=== PATIENT | male | born 1960 | race Caucasian/White ===

== ENCOUNTER 2022-05-06 02:28 | Inpatient (IN) ==
[2022-05-06] MEDS ORDERED: IOPAMIDOL 100 ML BOTTLE IV ONE (02:29)
--- NOTE | 2022-05-06 02:32 | Emergency Department Note ---
HPI General Chief complaint: Abdominal Pain Stated complaint: GI bleed. Black tarry stools, Nausea Time Seen by Provider: 05/06/22 02:32 Mode of arrival: ambulatory History of Present Illness HPI Narrative: Narrative: Patient is a 61-year-old male with a history of Susan fundoplication who presents to the emergency department due to abdominal pain and worsening of dark-colored stool. 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 He states that tonight he began to have lightheadedness, worsened abdominal pain, nausea, and his stool became dark and tarry. He states that the abdominal pain is in the upper part of his belly, sharp, and radiates to his back. He denies any other symptoms at this time. He has not taken any other medication. Related Data Previous Rx's Medication Instructions Recorded omeprazole 20 mg capsule,delayed 20 mg PO QDAY #30 caps 05/04/22 release Allergies Allergy/AdvReac Type Severity Reaction Status Date / Time No Known Drug Allergies Allergy Unverified 05/04/22 20:41 Review of Systems ROS ROS Narrative: Narrative: Constitutional: Reports weakness (Generalized); Denies fever Eyes: Denies eye pain or vision change ENT ED: Denies throat pain, hearing loss or rhinorrhea Cardiovascular: Reports other (Lightheadedness); Denies chest pain, dyspnea on exertion, orthopnea or edema Respiratory: Denies shortness of breath or cough Gastrointestinal: Reports abdominal pain, nausea and melena; Denies vomiting, diarrhea, constipation or hematochezia Genitourinary: Denies dysuria, frequency or hematuria Musculoskeletal: Denies back pain or myalgia Integumentary: Denies rash or lesions Neurological: Reports weakness (Generalized); Denies headache, numbness, confusion, abnormal gait or dizziness Endocrine: Denies fatigue or polyuria Hematological/Lymphatic: Denies easy bleeding or easy bruising [facility] Narrative Patient History Narrative: Narrative: Medical/Surgical/Family History All Active Problems (Updated 05/06/22 @ 07:06 by Marvin Aguiar MD) Abdominal pain (Acute) Diverticulosis (Acute) Heme positive stool (Acute) Acute upper GI bleed (Acute) Social History Smoking Status: Former smoker Exam Narrative Narrative: Narrative: General General appearance: Present alert and in no apparent distress; Absent anxious, appears intoxicated or sleepy Head Head: Present atraumatic and normocephalic Eye Eye: Present PERRL and EOMI; Absent scleral icterus or nystagmus ENT ENT: Present mucous membranes moist; Absent nasal congestion Neck Neck: Present full ROM; Absent tenderness Chest Chest: Present normal inspection and symmetric chest wall rise Respiratory Respiratory: Present normal lung sounds bilaterally; Absent respiratory distress or accessory muscle use Cardiovascular Cardiovascular: Present regular rate, normal rhythm and normal heart sounds Adbominal Abdominal: Present soft and normal bowel sounds; Absent distention or tenderness Extremities Extremities: Present normal inspection and full ROM; Absent tenderness, pedal edema or pretibial edema Back Back: Present normal inspection and full ROM Neurological Neurological: Present alert and oriented X3 Psychiatric Psychiatric: Present normal affect and normal mood Skin Skin: Present warm (WNL), dry and normal color Course Vital Signs Vital signs: Vital Signs Temperature 97.2 F 05/06/22 02:30 Pulse Rate 78 05/06/22 02:30 Respiratory Rate 20 05/06/22 02:30 Blood Pressure 107/79 05/06/22 02:30 Pulse Oximetry (%) 98 05/06/22 02:30 Oxygen Delivery Method 05/06/22 02:30 Temperature 97.2 F 05/06/22 02:30 Pulse Rate 76 05/06/22 07:04 Respiratory Rate 14 05/06/22 07:04 Blood Pressure 96/78 05/06/22 07:01 Pulse Oximetry (%) 98 05/06/22 07:04 Oxygen Delivery Method 05/06/22 02:30 [facility] MDM Narrative Medical decision making narrative: Narrative: Patient is a 61-year-old male who presents to the emergency department due to concern for GI bleed. Patient was seen on Thursday, but symptoms have worsened since then. Patient now has concern for a more brisk upper GI bleed. Given patient's symptoms I am concerned that he will need to be admitted. Patient's labs are reassuring overall, but he does have more elevated BUN than he did on Thursday. A Protonix bolus and drip have been ordered. I have spoken to Dr. Salinas who has agreed to see the patient, but as I was speaking to him there was concern for hypotension, so I reevaluated patient. After reevaluation patient had continued hypotension. I spoke with Dr. Salinas again, and he requested CT angiogram of abdomen and pelvis prior to admission. This has been ordered and performed and read is pending. Patient has been signed out to Dr. Rico. Lab Data Result diagrams: 05/06/22 02:52 Labs: Lab Results 05/06/22 05/06/22 05/06/22 Range/Units 02:50 02:51 02:51 WBC (4.5-11.0) K/mcL RBC (4.63-6.08) M/mcL Hgb (13.7-17.5) g/dL Hct (40.1-51.0) % POC Hct 40.0 L (41-55) MCV (80.0-100.0) fL MCH (26.0-34.0) pg MCHC (31.0-36.0) g/dL RDW (11.5-14.5) % Plt Count (140-440) K/mcL MPV (8.8-12.5) fL Immature Gran % (Auto) (0.0-0.5) % Neut % (Auto) (38.0-78.0) % Lymph % (Auto) (15.5-49.0) % [place] % (Auto) (1.0-12.0) % Eos % (Auto) (0.0-7.0) % Baso % (Auto) (0.0-2.0) % Lymph # (Auto) (1.50-4.80) K/mcL [place] # (Auto) (0.10-0.90) K/mcL Eos # (Auto) (0.00-0.70) K/mcL Baso # (Auto) (0.00-0.30) K/mcL Immature Gran # (0.00-0.05) K/mcl Absolute Neutrophils (1.80-8.00) K/mcL PT 12.6 (11.9-14.5) sec INR 0.9 (0.9-1.1) APTT (20.0-37.0) sec POC VBG pH (7.32-7.42) POC VBG pCO2 at Temp (41-51) POC VBG pO2 (25-40) POC VBG HCO3 (24-28) POC VBG Total CO2 (25-29) POC Venous O2 Sat (40-70) POC VBG Base Excess (-2-2) VBG Lactic Acid (0.5-2) POC Sodium 138 (133-145) POC Potassium 5.3 H (3.3-5.1) POC Chloride 107 (96-108) POC Total CO2 24.0 (22-30) POC BUN 59 H (6-20) POC Creatinine 1.3 H (0.6-1.2) POC Glucose 127 H (70-105) POC WB Ioniz Calcium 1.18 (1.16-1.32) Total Bilirubin (0.1-1.0) mg/dL Direct Bilirubin (0-0.3) mg/dL AST (<40) U/L ALT (<40) U/L Alkaline Phosphatase (39-117) U/L Total Protein (5.9-8.4) gm/dL Albumin (3.2-5.2) gm/dL Globulin (2.2-3.7) gm/dL Lipase (7-60) U/L POC Troponin I < 0.02 (0.00-0.08) 05/06/22 05/06/22 05/06/22 Range/Units 02:52 02:52 02:52 WBC 12.9 H (4.5-11.0) K/mcL RBC 4.47 L (4.63-6.08) M/mcL Hgb 14.2 (13.7-17.5) g/dL Hct 39.6 L (40.1-51.0) % POC Hct (41-55) MCV 88.6 (80.0-100.0) fL MCH 31.8 (26.0-34.0) pg MCHC 35.9 (31.0-36.0) g/dL RDW 12.9 (11.5-14.5) % Plt Count 326 (140-440) K/mcL MPV 9.8 (8.8-12.5) fL Immature Gran % (Auto) 0.6 H (0.0-0.5) % Neut % (Auto) 71.8 (38.0-78.0) % Lymph % (Auto) 18.1 (15.5-49.0) % [place] % (Auto) 5.4 (1.0-12.0) % Eos % (Auto) 3.6 (0.0-7.0) % Baso % (Auto) 0.5 (0.0-2.0) % Lymph # (Auto) 2.33 (1.50-4.80) K/mcL [place] # (Auto) 0.70 (0.10-0.90) K/mcL Eos # (Auto) 0.46 (0.00-0.70) K/mcL Baso # (Auto) 0.07 (0.00-0.30) K/mcL Immature Gran # 0.08 H (0.00-0.05) K/mcl Absolute Neutrophils 9.21 H (1.80-8.00) K/mcL PT (11.9-14.5) sec INR (0.9-1.1) APTT 23.6 (20.0-37.0) sec POC VBG pH (7.32-7.42) POC VBG pCO2 at Temp (41-51) POC VBG pO2 (25-40) POC VBG HCO3 (24-28) POC VBG Total CO2 (25-29) POC Venous O2 Sat (40-70) POC VBG Base Excess (-2-2) VBG Lactic Acid (0.5-2) POC Sodium (133-145) POC Potassium (3.3-5.1) POC Chloride (96-108) POC Total CO2 (22-30) POC BUN (6-20) POC Creatinine (0.6-1.2) POC Glucose (70-105) POC WB Ioniz Calcium (1.16-1.32) Total Bilirubin 0.8 (0.1-1.0) mg/dL Direct Bilirubin < 0.2 (0-0.3) mg/dL AST 24 (<40) U/L ALT 14 (<40) U/L Alkaline Phosphatase 41 (39-117) U/L Total Protein 7.1 (5.9-8.4) gm/dL Albumin 3.9 (3.2-5.2) gm/dL Globulin 3.2 (2.2-3.7) gm/dL Lipase 31 (7-60) U/L POC Troponin I (0.00-0.08) 11/08/22 Range/Units 05:06 WBC (4.5-11.0) K/mcL RBC (4.63-6.08) M/mcL Hgb (13.7-17.5) g/dL Hct (40.1-51.0) % POC Hct (41-55) MCV (80.0-100.0) fL MCH (26.0-34.0) pg MCHC (31.0-36.0) g/dL RDW (11.5-14.5) % Plt Count (140-440) K/mcL MPV (8.8-12.5) fL Immature Gran % (Auto) (0.0-0.5) % Neut % (Auto) (38.0-78.0) % Lymph % (Auto) (15.5-49.0) % [place] % (Auto) (1.0-12.0) % Eos % (Auto) (0.0-7.0) % Baso % (Auto) (0.0-2.0) % Lymph # (Auto) (1.50-4.80) K/mcL [place] # (Auto) (0.10-0.90) K/mcL Eos # (Auto) (0.00-0.70) K/mcL Baso # (Auto) (0.00-0.30) K/mcL Immature Gran # (0.00-0.05) K/mcl Absolute Neutrophils (1.80-8.00) K/mcL PT (11.9-14.5) sec INR (0.9-1.1) APTT (20.0-37.0) sec POC VBG pH 7.29 L (7.32-7.42) POC VBG pCO2 at Temp 49.3 (41-51) POC VBG pO2 35 (25-40) POC VBG HCO3 23.5 L (24-28) POC VBG Total CO2 25.0 (25-29) POC Venous O2 Sat 59.0 (40-70) POC VBG Base Excess -3.0 L (-2-2) VBG Lactic Acid 0.9 (0.5-2) POC Sodium (133-145) POC Potassium (3.3-5.1) POC Chloride (96-108) POC Total CO2 (22-30) POC BUN (6-20) POC Creatinine (0.6-1.2) POC Glucose (70-105) POC WB Ioniz Calcium (1.16-1.32) Total Bilirubin (0.1-1.0) mg/dL Direct Bilirubin (0-0.3) mg/dL AST (<40) U/L ALT (<40) U/L Alkaline Phosphatase (39-117) U/L Total Protein (5.9-8.4) gm/dL Albumin (3.2-5.2) gm/dL Globulin (2.2-3.7) gm/dL Lipase (7-60) U/L POC Troponin I (0.00-0.08) EKG Data EKG #1: EKG attestation: Yes I reviewed and interpreted this EKG. EKG results narrative: Normal sinus rhythm with rate of 79, equivocal axis, MS 176, QRS 96, QTc 452, T wave flattening lead III, and absence of ST elevation or depression. Discharge Plan Patient/Caregiver Discharge Instructions Pt seen by AUT[employer] COUNTER ASSOCIATE/PA only: No Clinical Impression: Acute upper GI bleed Patient Disposition: Still a Patient Condition: Fair Follow up with: No,PCP [Primary Care Provider] - Prescriptions: No Action omeprazole 20 mg capsule,delayed release(DR/EC) 20 mg PO QDAY Qty: 30 0RF
[2022-05-06] MEDS ORDERED: PANTOPRAZOLE 40 MG VIAL IV ONE (02:46)
[2022-05-06] MEDS ORDERED: ONDANSETRON 4 MG/2 ML VIAL IV ONE (02:46)
[2022-05-06] MEDS ORDERED: morphine 4 MG/ML VIAL IV ONE (02:46)
[2022-05-06 02:54] LABS: POC Calcium, Ionized 1.18 (1.16-1.32); POC Creatinine 1.3 (0.6-1.2); POC Potassium 5.3 (3.3-5.1)
[2022-05-06] MEDS ORDERED: PROMETHAZINE 25 MG/ML VIAL IV ONE (03:16)
[2022-05-06 03:19] LABS: Basophils # (Auto) 0.07 K/mcL (0.00-0.30); Basophils % (Auto) 0.5 % (0.0-2.0); Eosinophils # (Auto) 0.46 K/mcL (0.00-0.70); Eosinophils % (Auto) 3.6 % (0.0-7.0); Hematocrit 39.6 % (40.1-51.0); Hemoglobin 14.2 g/dL (13.7-17.5); Lymphocytes # (Auto) 2.33 K/mcL (1.50-4.80); Lymphocytes % (Auto) 18.1 % (15.5-49.0); Mean Cell Volume 88.6 fL (80.0-100.0); Mean Corpuscular HGB Conc 35.9 g/dL (31.0-36.0); Mean Platelet Volume 9.8 fL (8.8-12.5); Monocytes % (Auto) 5.4 % (1.0-12.0); Neutrophils % (Auto) 71.8 % (38.0-78.0); Platelet Count 326 K/mcL (140-440); RBC 4.47 M/mcL (4.63-6.08); Red Cell Distribution Width 12.9 % (11.5-14.5); WBC 12.9 K/mcL (4.5-11.0)
[2022-05-06 03:26] LABS: INR 0.9 (0.9-1.1); Prothrombin Time 12.6 sec (11.9-14.5)
[2022-05-06 03:32] LABS: ALT/SGPT 14 U/L (<40); AST/SGOT 24 U/L (<40); Albumin 3.9 gm/dL (3.2-5.2); Alkaline Phosphatase 41 U/L (39-117); Bilirubin,Direct < 0.2 mg/dL (0-0.3); Bilirubin,Total 0.8 mg/dL (0.1-1.0); Globulin 3.2 gm/dL (2.2-3.7)
[2022-05-06] MEDS: PANTOPRAZOLE 80 MG in 0.9 % SODIUM CHLORIDE 100 ML IV SCH ×2 (03:33→14:26)
[2022-05-06] MEDS ORDERED: 0.9 % SODIUM CHLORIDE 1,000 ML IV ONE (04:27)
[2022-05-06] MEDS ORDERED: 0.9 % SODIUM CHLORIDE 250 ML IV SCH (04:45)
--- NOTE | 2022-05-06 07:09 | EKG ---
[facility] Test Date: 2022-05-06 Pat Name: Ted Monzon Department: ED Room: Gender: Male [employer] Technician: : 1960 Requested By: Marvin Aguiar Order Number: [id number] Reading MD: Gerber Chapa M.D. Measurements Intervals [place] Rate: 79 P: -19 W[place]: 176 QRS: -9 QRSD: 96 T: 35 QT: 394 QTc: 452 Interpretive Statements Sinus rhythm Electronically Signed On 05-06-2022 7:09:22 PST by Gerber Chapa M.D. /store/[email or web address]/[id number]
--- NOTE | 2022-05-06 08:41 | Cat Scan Report ---
History: Gastrointestinal bleeding with black tarry stools, nausea TECHNIQUE: Abdomen was first imaged without contrast scanning from above the diaphragm through the symphysis pubis. Intravenous nonionic contrast was injected and the patient was reimaged during the nephrogram phase scanning from above the diaphragm to the symphysis pubis. Sagittal and coronal reformats were created. The radiation exposure was limited using dose reduction technology. FINDINGS: Mild dependent atelectasis is present in the posterior basal segments of both lower lobes. Small hiatus hernia is present. The liver and spleen are normal in size and homogeneous. The gallbladder and bile ducts are normal. There is no mass or inflammation in the pancreas. The adrenals are normal. There is a nonobstructing 1 mm stone in the lower pole calyx of the left kidney. The kidneys are otherwise normal. The aorta and inferior vena cava are normal. There is minor atherosclerosis. The stomach is largely decompressed. The small intestine is normal. The appendix has been removed. There are multiple diverticula in the descending and sigmoid colon. The wall of the mid sigmoid colon is circumferentially thickened due to chronic diverticulosis. There is no evidence of acute diverticulitis. The ascending and transverse colon are decompressed. The daly do not appear to be inflamed. The source of the intestinal bleeding is not identified on this study. The nephrogram phase images show no extravasation of contrast into the bowel. The prostate, seminal vesicles and bladder are normal. There is severe disc space narrowing at L5-S1. There has been prior fusion at that level. IMPRESSION: Diverticulosis without evidence of diverticulitis. Source of intestinal bleeding is not identified.. Interpreted and Authenticated by: Miguel Ángel Chapa 05/06/22
[2022-05-06 08:56] LABS: Hematocrit 40.2 % (40.1-51.0)
--- NOTE | 2022-05-06 09:26 | Internal Med History&Physical ---
HPI History of Present Illness Patient information: Note initiated : 05/06/22 at 9:09 am Service Date, if different from initiated Date: [] Patient: Ted Monzon 61 y/o M admitted on for GI bleed. Black tarry stools, Nausea. Chief Complaint: [] History of present illness: Mr. 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 The patient was seen in the ED for the same symptoms on 05/04/2022. Hemoglobin at that time was 15.1. The patient had a CT abdomen pelvis with contrast which showed segments of asymmetric thickening of the sigmoid colon. On presentation to the ED on 05/06/2022, the patient's hemoglobin was 14.2. The patient was hypotensive in the emergency department, lactic acid was normal. He received 2 units of red blood cells with modest improvement in blood pressure. A CTA abdomen pelvis not show any evidence of intestinal bleeding. The patient continued to feel lightheaded when upright in the emergency department. Hospital medicine was consulted for admission. Upon further evaluation, the patient says that he has been taking NSAIDs for quite a while. Patient denies taking a proton pump inhibitor with the NSAIDs. The patient says he developed melanotic stools and abdominal pain for the first time on 05/04/2022. Review of systems Constitutional: no fever, fatigue, or weight loss Eyes: Left sided blindness Cardiovascular: no chest pain, no palpitations, positive for lightheadedness when standing Respiratory: no cough or dyspnea Gastrointestinal: Positive for epigastric abdominal pain exacerbated by food intake, positive for nausea, positive for melanotic stools. Genitourinary: no dysuria or difficulty voiding Musculoskeletal: no arthralgia or myalgia Integumentary: no skin lesion or wound Neurological: no focal weakness or numbness Psychiatric: no anxiety or depression Physical exam Head: Atraumatic, normal inspection. Eyes: normal appearance, no scleral icterus. Neck: full ROM Respiratory: no respiratory distress. Cardiovascular: normal rate and rhythm, S1, S2. GI/Abdominal: soft, nontender, no guarding. Extremities: full range of motion, nontender. Neurological: CN II-XII intact, intact motor, intact sensation. Psychiatric: normal mood. Skin: warm, normal color PFSH PFSH All Active Problems (Updated 05/06/22 @ 07:06 by Marvin Aguiar MD) Abdominal pain (Acute) Diverticulosis (Acute) Heme positive stool (Acute) Acute upper GI bleed (Acute) Social History smoking status: Former smoker MEDS/ALLERGIES Home Medications and Allergies Home Medications Medication Instructions Recorded Confirmed Type omeprazole 20 mg capsule,delayed 20 mg PO QDAY #30 caps 05/04/22 05/06/22 Rx release citalopram 10 mg tablet 20 mg PO QDAY 05/06/22 05/06/22 History lisinopril 40 mg tablet 1 tab PO QDAY 05/06/22 05/06/22 History naproxen 500 mg tablet 1 tab PO BIDP PRN Pain 05/06/22 05/06/22 History propranolol 40 mg tablet 40 mg PO BID 05/06/22 05/06/22 History Allergies Allergy/AdvReac Type Severity Reaction Status Date / Time No Known Drug Allergies Allergy Unverified 05/04/22 20:41 EXAM Constitutional Vitals: Temp Pulse Resp BP Pulse Ox O2 Del Method 97.2 F 76 14 96/78 98 05/06/22 02:30 05/06/22 07:04 05/06/22 07:04 05/06/22 07:01 05/06/22 07:04 05/06/22 02:30 DATA Data Completed and Pending Labs: Labs from last 24 hours 05/06/22 05/06/22 05/06/22 07:57 05:06 02:52 WBC RBC Hgb 14.0 Hct 40.2 POC Hct MCV MCH MCHC RDW Plt Count MPV Immature Gran % (Auto) Neut % (Auto) Lymph % (Auto) [place] % (Auto) Eos % (Auto) Baso % (Auto) Lymph # (Auto) [place] # (Auto) Eos # (Auto) Baso # (Auto) Immature Gran # Absolute Neutrophils PT INR APTT 23.6 POC VBG pH 7.29 L POC VBG pCO2 at Temp 49.3 POC VBG pO2 35 POC VBG HCO3 23.5 L POC VBG Total CO2 25.0 POC Venous O2 Sat 59.0 POC VBG Base Excess -3.0 L VBG Lactic Acid 0.9 POC Sodium POC Potassium POC Chloride POC Total CO2 POC BUN POC Creatinine POC Glucose POC WB Ioniz Calcium Total Bilirubin Direct Bilirubin AST ALT Alkaline Phosphatase Total Protein Albumin Globulin Lipase POC Troponin I 05/06/22 05/06/22 05/06/22 02:52 02:52 02:51 WBC 12.9 H RBC 4.47 L Hgb 14.2 Hct 39.6 L POC Hct MCV 88.6 MCH 31.8 MCHC 35.9 RDW 12.9 Plt Count 326 MPV 9.8 Immature Gran % (Auto) 0.6 H Neut % (Auto) 71.8 Lymph % (Auto) 18.1 [place] % (Auto) 5.4 Eos % (Auto) 3.6 Baso % (Auto) 0.5 Lymph # (Auto) 2.33 [place] # (Auto) 0.70 Eos # (Auto) 0.46 Baso # (Auto) 0.07 Immature Gran # 0.08 H Absolute Neutrophils 9.21 H PT INR APTT POC VBG pH POC VBG pCO2 at Temp POC VBG pO2 POC VBG HCO3 POC VBG Total CO2 POC Venous O2 Sat POC VBG Base Excess VBG Lactic Acid POC Sodium POC Potassium POC Chloride POC Total CO2 POC BUN POC Creatinine POC Glucose POC WB Ioniz Calcium Total Bilirubin 0.8 Direct Bilirubin < 0.2 AST 24 ALT 14 Alkaline Phosphatase 41 Total Protein 7.1 Albumin 3.9 Globulin 3.2 Lipase 31 POC Troponin I < 0.02 05/06/22 05/06/22 02:51 02:50 WBC RBC Hgb Hct POC Hct 40.0 L MCV MCH MCHC RDW Plt Count MPV Immature Gran % (Auto) Neut % (Auto) Lymph % (Auto) [place] % (Auto) Eos % (Auto) Baso % (Auto) Lymph # (Auto) [place] # (Auto) Eos # (Auto) Baso # (Auto) Immature Gran # Absolute Neutrophils PT 12.6 INR 0.9 APTT POC VBG pH POC VBG pCO2 at Temp POC VBG pO2 POC VBG HCO3 POC VBG Total CO2 POC Venous O2 Sat POC VBG Base Excess VBG Lactic Acid POC Sodium 138 POC Potassium 5.3 H POC Chloride 107 POC Total CO2 24.0 POC BUN 59 H POC Creatinine 1.3 H POC Glucose 127 H POC WB Ioniz Calcium 1.18 Total Bilirubin Direct Bilirubin AST ALT Alkaline Phosphatase Total Protein Albumin Globulin Lipase POC Troponin I A/P Narrative A/P Narrative: Assessment: 61 year old male with a history of hypertension, degenerative disc disease status post prior lumbar spine surgeries, chronic back pain on NSAIDs, multiple sclerosis in remission, chronic headaches, left eye blindness from prior traumatic eye injury admitted for a probable upper GI bleed. CTA abdomen pelvis did not reveal a source of intra-abdominal bleeding. Patient's main risk factor for upper GI bleeding is long-term NSAID use. #Concern for upper GI bleed #Epigastric abdominal discomfort #Melena and hypotension #Chronic back pain on NSAIDs #Leukocytosis likely stress-induced #Mild elevation in creatinine #Mildly elevated potassium #Essential hypertension #Degenerative disc disease that is post lumbar fusion surgery #Multiple sclerosis in remission #Left eye blindness due to prior eye trauma #Chronic headaches Plan -Received 2 units RBC in the ED for hypotension in the setting of GI bleed. -Follow hemoglobin closely, transfuse RBC for hemoglobin less than 7 or symptomatic anemia. -Typed and screened for 4 units RBC. -Protonix infusion. -IV fluid, monitor urine output. -Follow potassium and renal function. -H. pylori stool antigen. -Endoscopic work-up with general surgery. -Hold lisinopril, propranolol for now. -Avoid NSAIDs. -N.p.o. -CODE STATUS: Full -Disposition: Home when stable, recommend screening colonoscopy if not recently performed. Time Spent With Patient Time: Total time spent is greater than 50% in coordination of care (as documented) at patient's floor/unit and/or counseling patient:
[2022-05-06] MEDS ORDERED: 0.9 % SODIUM CHLORIDE 1,000 ML IV SCH (10:42)
[2022-05-06] MEDS ORDERED: ONDANSETRON 4 MG/2 ML VIAL IV PRN (10:42)
[2022-05-06] MEDS ORDERED: SENNOSIDES 1 TABLET PO PRN (10:42)
[2022-05-06] MEDS ORDERED: ACETAMINOPHEN 325 MG TABLET PO PRN (10:42)
[2022-05-06] MEDS ORDERED: LACTULOSE 20 GM/30 ML ORAL.SOL PO PRN (10:42)
[2022-05-06] MEDS ORDERED: ACETAMINOPHEN 650 MG/65 ML BAG IV PRN (10:59)
[2022-05-06] MEDS: HYDROmorphone 0.5 MG/0.5 ML SYRINGE IV PRN ×3 (11:08→23:40)
--- NOTE | 2022-05-06 11:28 | General Surgery Consult Note ---
HPI Date of Consult Consult Date: 05/06/22 Primary Care Provider: PCP No Consult Narrative Patient Information: Note initiated : 05/06/22 at 11:26 am Service Date, if different from initiated Date: [] Patient: Ted Monzon 61 y/o M admitted on 05/06/22 for GI bleed. Black tarry stools, Nausea. This is a pleasant 61-year-old gentleman who has had a EGD in the past and had a Susan fundoplication in the past who presents with several week history of dark melanotic stools, the stools were guaiac +2 days ago in the emergency room however his H&H was stable therefore he was sent out with a GI consult. Patient reports starting to feel lightheaded presented to the emergency room and is being admitted for possible upper GI bleed work-up. I was asked to see the patient for an EGD. Chief Complaint: [] Chief complaint: Dark tarry stools, lightheadedness Reason for consult: Possible upper GI bleed cc:: CC: Yury Salinas MD Review of Systems Review of systems: All systems reviewed, negative other than above PFSH PFSH All Active Problems (Updated 05/06/22 @ 07:06 by Marvin Aguiar MD) Abdominal pain (Acute) Diverticulosis (Acute) Heme positive stool (Acute) Acute upper GI bleed (Acute) Social History smoking status: Former smoker MEDS/ALLERGIES Home Medications and Allergies Home Medications Medication Instructions Recorded Confirmed Type omeprazole 20 mg capsule,delayed 20 mg PO QDAY #30 caps 05/04/22 05/06/22 Rx release citalopram 10 mg tablet 10 mg PO QDAY 05/06/22 05/06/22 History lisinopril 40 mg tablet 1 tab PO QDAY 05/06/22 05/06/22 History naproxen 500 mg tablet 1 tab PO BIDP PRN Pain 05/06/22 05/06/22 History propranolol 40 mg tablet 40 mg PO BID 05/06/22 05/06/22 History sildenafil (pulm.hypertension) 20 1 - 2 tab PO PRN PRN Erectile 05/06/22 05/06/22 History mg tablet Dysfunction Allergies Allergy/AdvReac Type Severity Reaction Status Date / Time No Known Drug Allergies Allergy Unverified 05/04/22 20:41 Physical Examination Vital Signs Vital signs: Temp Pulse Resp BP Pulse Ox O2 Del Method O2 Flow Rate 98.0 F 80 16 91/73 99 0 05/06/22 10:44 05/06/22 10:44 05/06/22 10:44 05/06/22 10:44 05/06/22 10:44 05/06/22 10:44 05/06/22 10:44 General physical appearance General physical exam: well developed, well nourished and no distress Eyes Eye exam: PERRL and normal ocular movement ENT ENT exam: normal pinna, normal nares, normal mucosa, no hearing loss and no congestion Head Head exam IM: Present atraumatic and normocephalic Neck Neck exam: no masses, no bruits, trachea midline, no lymphadenopathy and no venous distension Cardiovascular Cardiovascular exam IM: Present normal rate and rhythm Respiratory Respiratory exam: normal expansion, normal respiratory effort, clear to percussion and clear to auscultation Abdomen Abdomen: Present soft, non tender and bowel sounds Hernia: Present none Genitourinary Genitourinary (Male): Present normal penis with no external lesions Rectum Rectum: Present normal sphincter tone, no hemorrhoids, no tenderness, no masses and no bleeding Integumentary Integumentary: Present no rash, no growths and no abnormal pigmentation Neurologic Neurologic: Present normal coordination and normal sensation Musculoskeletal Musculoskeletal: Present normal gait and normal posture Psychiatric Psychiatric: Present oriented to time, oriented to person, oriented to place, speech is normal and memory intact Results Labs Result diagrams: 05/06/22 07:57 Labs: Abnormal lab results 05/06/22 05/06/22 05/06/22 Range/Units 02:50 02:52 05:06 WBC 12.9 H (4.5-11.0) K/mcL RBC 4.47 L (4.63-6.08) M/mcL Hct 39.6 L (40.1-51.0) % POC Hct 40.0 L (41-55) Immature Gran % (Auto) 0.6 H (0.0-0.5) % Immature Gran # 0.08 H (0.00-0.05) K/mcl Absolute Neutrophils 9.21 H (1.80-8.00) K/mcL POC VBG pH 7.29 L (7.32-7.42) POC VBG HCO3 23.5 L (24-28) POC VBG Base Excess -3.0 L (-2-2) POC Potassium 5.3 H (3.3-5.1) POC BUN 59 H (6-20) POC Creatinine 1.3 H (0.6-1.2) POC Glucose 127 H (70-105) Diabetes panel 05/06/22 Range/Units 02:52 AST 24 (<40) U/L ALT 14 (<40) U/L Alkaline Phosphatase 41 (39-117) U/L Total Protein 7.1 (5.9-8.4) gm/dL Albumin 3.9 (3.2-5.2) gm/dL Calcium panel 05/06/22 Range/Units 02:52 Albumin 3.9 (3.2-5.2) gm/dL Adrenal panel 05/06/22 Range/Units 02:52 Total Bilirubin 0.8 (0.1-1.0) mg/dL AST 24 (<40) U/L ALT 14 (<40) U/L Alkaline Phosphatase 41 (39-117) U/L Total Protein 7.1 (5.9-8.4) gm/dL Albumin 3.9 (3.2-5.2) gm/dL All other labs normal. A/P Assessment and plan (1) Heme positive stool: Plan: This is a pleasant 61-year-old gentleman status post Susan fundoplication in the past who presents with possible upper GI bleed. Risk, benefits, alternatives to procedure discussed with the patient at length including details of procedure and what to expect. Post he verbalizes understanding, all of his questions are answered and he desires to continue. Plan: EGD, possible control bleed. Status: Acute Time Spent With Patient Time: Total time spent is greater than 50% in coordination of care (as documented) at patient's floor/unit and/or counseling patient:
[2022-05-06] MEDS ORDERED: PROPOFOL 200 MG/20 ML VIAL IV ONE (11:29)
--- NOTE | 2022-05-06 11:47 | EGD Procedure Note ---
EGD Procedure Notes Procedure Information Patient information: Note initiated : 05/06/22 at 11:44 am Patient: Ted Monzon 61 y/o M admitted on 05/06/22 for GI bleed. Black tarry stools, Nausea. Date of Procedure: 05/06/22 Pre-Op Diagnosis: Upper GI bleed Post-Op Diagnosis: Multiple gastric and duodenal ulcers, no active bleed Procedure: EGD with Bx Procedure Narrative: After risk benefits and alternatives to the procedure were discussed with the patient at length he verbalized understanding and desire to continue with the procedure. Patient was taken to endoscopy. Surgical timeout was taken to verify patient and procedure being performed sedation was administered by anesthesia . An adult gastroscope was entered and advanced under direct vision into the second portion of the duodenum. The antrum was fully inspected, the scope was retroflexed in the stomach. Full examination revealed multiple healed ulcers in the duodenal bulb, multiple antral ulcers all appeared old with no evidence of active bleed. Antral biopsy was done to rule out H. pylori. Intact Susan fundoplication. The GE junction was at 35 cm and the esophagus was normal on full exam. EBL none. Patient tolerated procedure well. Anesthesia: MAC Findings: Multiple healed ulcers, no evidence of active bleed Complications: none Surgeon: Dominic Goel Specimens Removed/Pathology: other (Antral biopsy) Condition: stable Disposition: PACU Assessment: Multiple ulcers. Biopsy done to rule out H. pylori. Recommend continuing proton pump inhibitor, cleared for discharge and advance diet as tolerated. Follow-up with me in 2 to 3 weeks for biopsy results.
[2022-05-06] MEDS: 0.9 % SODIUM CHLORIDE 1,000 ML IV SCH ×2 (13:00→18:44)
--- NOTE | 2022-05-06 15:23 | Emergency Department Note ---
HPI General Chief complaint: Abdominal Pain Stated complaint: GI bleed. Black tarry stools, Nausea Time Seen by Provider: 05/06/22 02:32 Source: patient Mode of arrival: ambulatory Limitations: no limitations History of Present Illness HPI Narrative: Narrative: Patient received on signout. CT abdomen pelvis is read by radiology is reviewed as per the electronic medical record. Patient was accepted to the hospitalist service. Related Data Home Medications Medication Instructions Recorded Confirmed citalopram 10 mg tablet 10 mg PO QDAY 05/06/22 05/06/22 lisinopril 40 mg tablet 1 tab PO QDAY 05/06/22 05/06/22 naproxen 500 mg tablet 1 tab PO BIDP PRN Pain 05/06/22 05/06/22 propranolol 40 mg tablet 40 mg PO BID 05/06/22 05/06/22 sildenafil (pulm.hypertension) 20 1 - 2 tab PO PRN PRN Erectile 05/06/22 05/06/22 mg tablet Dysfunction Previous Rx's Medication Instructions Recorded omeprazole 20 mg capsule,delayed 20 mg PO QDAY #30 caps 05/04/22 release Allergies Allergy/AdvReac Type Severity Reaction Status Date / Time No Known Drug Allergies Allergy Unverified 05/04/22 20:41 Review of Systems ROS ROS Narrative: Narrative: Constitutional: Reports weakness (Generalized); Denies fever Eyes: Denies eye pain or vision change ENT ED: Denies throat pain, hearing loss or rhinorrhea Cardiovascular: Reports other (Lightheadedness); Denies chest pain, dyspnea on exertion, orthopnea or edema Respiratory: Denies shortness of breath or cough Gastrointestinal: Reports abdominal pain, nausea and melena; Denies vomiting, diarrhea, constipation or hematochezia Genitourinary: Denies dysuria, frequency or hematuria Musculoskeletal: Denies back pain or myalgia Integumentary: Denies rash or lesions Neurological: Reports weakness (Generalized); Denies headache, numbness, confusion, abnormal gait or dizziness Psychiatric: Denies anxiety, suicidal thoughts or homicidal thoughts Endocrine: Denies fatigue or polyuria Hematological/Lymphatic: Denies easy bleeding or easy bruising [facility] Narrative Patient History Narrative: Narrative: Medical/Surgical/Family History All Active Problems (Updated 05/06/22 @ 07:06 by Marvin Aguiar MD) Abdominal pain (Acute) Diverticulosis (Acute) Heme positive stool (Acute) Acute upper GI bleed (Acute) Social History Smoking Status: Former smoker Exam Narrative Narrative: Narrative: General Limitations: no limitations Course Vital Signs Vital signs: Vital Signs Temperature 97.2 F 05/06/22 02:30 Pulse Rate 78 05/06/22 02:30 Respiratory Rate 20 05/06/22 02:30 Blood Pressure 107/79 05/06/22 02:30 Pulse Oximetry (%) 98 05/06/22 02:30 Oxygen Delivery Method 05/06/22 02:30 Temperature 98.0 F 05/06/22 10:44 Pulse Rate 74 05/06/22 13:01 Respiratory Rate 12 05/06/22 13:01 Blood Pressure 91/63 05/06/22 13:01 Pulse Oximetry (%) 94 05/06/22 13:01 Oxygen Delivery Method 05/06/22 13:01 Oxygen Flow Rate (L/min) 0 05/06/22 13:01 MDM MDM Narrative Medical decision making narrative: Narrative: Lab Data Result diagrams: 05/06/22 14:30 05/06/22 07:57 Labs: Lab Results 05/06/22 05/06/22 05/06/22 Range/Units 02:50 02:51 02:51 WBC (4.5-11.0) K/mcL RBC (4.63-6.08) M/mcL Hgb (13.7-17.5) g/dL Hct (40.1-51.0) % POC Hct 40.0 L (41-55) MCV (80.0-100.0) fL MCH (26.0-34.0) pg MCHC (31.0-36.0) g/dL RDW (11.5-14.5) % Plt Count (140-440) K/mcL MPV (8.8-12.5) fL Immature Gran % (Auto) (0.0-0.5) % Neut % (Auto) (38.0-78.0) % Lymph % (Auto) (15.5-49.0) % [place] % (Auto) (1.0-12.0) % Eos % (Auto) (0.0-7.0) % Baso % (Auto) (0.0-2.0) % Lymph # (Auto) (1.50-4.80) K/mcL [place] # (Auto) (0.10-0.90) K/mcL Eos # (Auto) (0.00-0.70) K/mcL Baso # (Auto) (0.00-0.30) K/mcL Immature Gran # (0.00-0.05) K/mcl Absolute Neutrophils (1.80-8.00) K/mcL PT 12.6 (11.9-14.5) sec INR 0.9 (0.9-1.1) APTT (20.0-37.0) sec POC VBG pH (7.32-7.42) POC VBG pCO2 at Temp (41-51) POC VBG pO2 (25-40) POC VBG HCO3 (24-28) POC VBG Total CO2 (25-29) POC Venous O2 Sat (40-70) POC VBG Base Excess (-2-2) VBG Lactic Acid (0.5-2) POC Sodium 138 (133-145) Sodium POC Potassium 5.3 H (3.3-5.1) Potassium POC Chloride 107 (96-108) Chloride Carbon Dioxide POC Total CO2 24.0 (22-30) Anion Gap POC BUN 59 H (6-20) BUN Creatinine POC Creatinine 1.3 H (0.6-1.2) GFR Calculation Glucose POC Glucose 127 H (70-105) Calcium POC WB Ioniz Calcium 1.18 (1.16-1.32) Phosphorus Total Bilirubin (0.1-1.0) mg/dL Direct Bilirubin (0-0.3) mg/dL AST (<40) U/L ALT (<40) U/L Alkaline Phosphatase (39-117) U/L Total Protein (5.9-8.4) gm/dL Albumin (3.2-5.2) gm/dL Globulin (2.2-3.7) gm/dL Lipase (7-60) U/L POC Troponin I < 0.02 (0.00-0.08) 05/06/22 05/06/22 05/06/22 Range/Units 02:52 02:52 02:52 WBC 12.9 H (4.5-11.0) K/mcL RBC 4.47 L (4.63-6.08) M/mcL Hgb 14.2 (13.7-17.5) g/dL Hct 39.6 L (40.1-51.0) % POC Hct (41-55) MCV 88.6 (80.0-100.0) fL MCH 31.8 (26.0-34.0) pg MCHC 35.9 (31.0-36.0) g/dL RDW 12.9 (11.5-14.5) % Plt Count 326 (140-440) K/mcL MPV 9.8 (8.8-12.5) fL Immature Gran % (Auto) 0.6 H (0.0-0.5) % Neut % (Auto) 71.8 (38.0-78.0) % Lymph % (Auto) 18.1 (15.5-49.0) % [place] % (Auto) 5.4 (1.0-12.0) % Eos % (Auto) 3.6 (0.0-7.0) % Baso % (Auto) 0.5 (0.0-2.0) % Lymph # (Auto) 2.33 (1.50-4.80) K/mcL [place] # (Auto) 0.70 (0.10-0.90) K/mcL Eos # (Auto) 0.46 (0.00-0.70) K/mcL Baso # (Auto) 0.07 (0.00-0.30) K/mcL Immature Gran # 0.08 H (0.00-0.05) K/mcl Absolute Neutrophils 9.21 H (1.80-8.00) K/mcL PT (11.9-14.5) sec INR (0.9-1.1) APTT 23.6 (20.0-37.0) sec POC VBG pH (7.32-7.42) POC VBG pCO2 at Temp (41-51) POC VBG pO2 (25-40) POC VBG HCO3 (24-28) POC VBG Total CO2 (25-29) POC Venous O2 Sat (40-70) POC VBG Base Excess (-2-2) VBG Lactic Acid (0.5-2) POC Sodium (133-145) Sodium POC Potassium (3.3-5.1) Potassium POC Chloride (96-108) Chloride Carbon Dioxide POC Total CO2 (22-30) Anion Gap POC BUN (6-20) BUN Creatinine POC Creatinine (0.6-1.2) GFR Calculation Glucose POC Glucose (70-105) Calcium POC WB Ioniz Calcium (1.16-1.32) Phosphorus Total Bilirubin 0.8 (0.1-1.0) mg/dL Direct Bilirubin < 0.2 (0-0.3) mg/dL AST 24 (<40) U/L ALT 14 (<40) U/L Alkaline Phosphatase 41 (39-117) U/L Total Protein 7.1 (5.9-8.4) gm/dL Albumin 3.9 (3.2-5.2) gm/dL Globulin 3.2 (2.2-3.7) gm/dL Lipase 31 (7-60) U/L POC Troponin I (0.00-0.08) 05/06/22 05/06/22 05/06/22 Range/Units 05:06 07:57 07:57 WBC (4.5-11.0) K/mcL RBC (4.63-6.08) M/mcL Hgb 14.0 (13.7-17.5) g/dL Hct 40.2 (40.1-51.0) % POC Hct (41-55) MCV (80.0-100.0) fL MCH (26.0-34.0) pg MCHC (31.0-36.0) g/dL RDW (11.5-14.5) % Plt Count (140-440) K/mcL MPV (8.8-12.5) fL Immature Gran % (Auto) (0.0-0.5) % Neut % (Auto) (38.0-78.0) % Lymph % (Auto) (15.5-49.0) % [place] % (Auto) (1.0-12.0) % Eos % (Auto) (0.0-7.0) % Baso % (Auto) (0.0-2.0) % Lymph # (Auto) (1.50-4.80) K/mcL [place] # (Auto) (0.10-0.90) K/mcL Eos # (Auto) (0.00-0.70) K/mcL Baso # (Auto) (0.00-0.30) K/mcL Immature Gran # (0.00-0.05) K/mcl Absolute Neutrophils (1.80-8.00) K/mcL PT (11.9-14.5) sec INR (0.9-1.1) APTT (20.0-37.0) sec POC VBG pH 7.29 L (7.32-7.42) POC VBG pCO2 at Temp 49.3 (41-51) POC VBG pO2 35 (25-40) POC VBG HCO3 23.5 L (24-28) POC VBG Total CO2 25.0 (25-29) POC Venous O2 Sat 59.0 (40-70) POC VBG Base Excess -3.0 L (-2-2) VBG Lactic Acid 0.9 (0.5-2) POC Sodium (133-145) Sodium TNP POC Potassium (3.3-5.1) Potassium TNP POC Chloride (96-108) Chloride TNP Carbon Dioxide TNP POC Total CO2 (22-30) Anion Gap TNP POC BUN (6-20) BUN TNP Creatinine TNP POC Creatinine (0.6-1.2) GFR Calculation TNP Glucose TNP POC Glucose (70-105) Calcium TNP POC WB Ioniz Calcium (1.16-1.32) Phosphorus TNP Total Bilirubin (0.1-1.0) mg/dL Direct Bilirubin (0-0.3) mg/dL AST (<40) U/L ALT (<40) U/L Alkaline Phosphatase (39-117) U/L Total Protein (5.9-8.4) gm/dL Albumin TNP (3.2-5.2) gm/dL Globulin (2.2-3.7) gm/dL Lipase (7-60) U/L POC Troponin I (0.00-0.08) Discharge Plan Patient/Caregiver Discharge Instructions Pt seen by [employer]/PA only: No Clinical Impression: Acute upper GI bleed Patient Disposition: Still a Patient Condition: Fair Discharge Date/Time: 05/06/22 10:30
[2022-05-06 15:31] LABS: Albumin 3.2 gm/dL (3.2-5.2); Blood Urea Nitrogen 35 mg/dL (6-20); Calcium 8.3 mg/dL (8.6-10.4); Carbon Dioxide 25 mmol/L (22-30); Chloride 107 mmol/L (96-108); Glomerular Filtration Rate 66; Glucose 92 mg/dL (70-105); Phosphorous 4.2 mg/dL (2.5-4.5)
[2022-05-06] MEDS: 0.9 % SODIUM CHLORIDE 10 ML SYRINGE IV SCH ×2 (17:41→20:35)
[2022-05-06] MEDS: DOCUSATE SODIUM 100 MG CAPSULE PO SCH (21:12)
[2022-05-07] MEDS ORDERED: PANTOPRAZOLE 40 MG VIAL IV ONE (00:45)
[2022-05-07] MEDS: PANTOPRAZOLE 80 MG in 0.9 % SODIUM CHLORIDE 100 ML IV SCH ×2 (00:58→11:02)
[2022-05-07] MEDS: 0.9 % SODIUM CHLORIDE 1,000 ML IV SCH ×2 (00:59→07:59)
[2022-05-07] MEDS: 0.9 % SODIUM CHLORIDE 10 ML SYRINGE IV SCH ×2 (05:20→16:23)
[2022-05-07 06:58] LABS: Basophils # (Auto) 0.04 K/mcL (0.00-0.30); Basophils % (Auto) 0.7 % (0.0-2.0); Eosinophils # (Auto) 0.36 K/mcL (0.00-0.70); Eosinophils % (Auto) 6.6 % (0.0-7.0); Hematocrit 35.1 % (40.1-51.0); Hemoglobin 11.7 g/dL (13.7-17.5); Lymphocytes # (Auto) 2.02 K/mcL (1.50-4.80); Lymphocytes % (Auto) 37.3 % (15.5-49.0); Mean Cell Volume 92.9 fL (80.0-100.0); Mean Corpuscular HGB Conc 33.3 g/dL (31.0-36.0); Mean Platelet Volume 9.3 fL (8.8-12.5); Monocytes # (Auto) 0.37 K/mcL (0.10-0.90); Monocytes % (Auto) 6.8 % (1.0-12.0); Neutrophils % (Auto) 47.9 % (38.0-78.0); Platelet Count 196 K/mcL (140-440); RBC 3.78 M/mcL (4.63-6.08); Red Cell Distribution Width 13.6 % (11.5-14.5); WBC 5.4 K/mcL (4.5-11.0)
[2022-05-07 06:59] LABS: ALT/SGPT 9 U/L (<40); AST/SGOT 11 U/L (<40); Albumin/Globulin Ratio 1.4 (1.0-2.3); Alkaline Phosphatase 31 U/L (39-117); Bilirubin,Direct < 0.2 mg/dL (0-0.3); Bilirubin,Total 0.6 mg/dL (0.1-1.0); Blood Urea Nitrogen 21 mg/dL (6-20); Calcium 8.3 mg/dL (8.6-10.4); Carbon Dioxide 22 mmol/L (22-30); Chloride 109 mmol/L (96-108); Globulin 2.2 gm/dL (2.2-3.7); Glomerular Filtration Rate 73; Glucose 96 mg/dL (70-105); Lactate Dehydrogenase 151 U/L (135-225); Phosphorous 3.4 mg/dL (2.5-4.5); Triglycerides 115 mg/dL (<150)
[2022-05-07] MEDS: DOCUSATE SODIUM 100 MG CAPSULE PO SCH (10:14)
[2022-05-07 13:25] LABS: Hematocrit 34.5 % (40.1-51.0)
--- NOTE | 2022-05-07 13:37 | Discharge Summary ---
Discharge Provider Provider IMPORTANT FOLLOW-UP INFORMATION FOR PCP: Patient information: Note initiated : 05/07/22 at 1:33 pm Service Date, if different from initiated Date: [] Patient: Ted Monzon 61 y/o M admitted on 05/06/22 for GI bleed. Black tarry stools, Nausea. Chief Complaint: [] Date of admission: 05/06/22 10:30 Discharge date: 05/07/22 Primary care physician: PCP No Consults: 05/06/22 Consult to Physician [CONS] Stat Comment: Consulting Provider: Yury Salinas Reason For Exam: Physician to Consult Consult to Physician [CONS] Stat Comment: Consulting Provider: Dominic Goel Reason For Exam: Physician to Consult COURSE Hospital Course Hospital course: Mr. 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 The patient was seen in the ED for the same symptoms on 05/04/2022. Hemoglobin at that time was 15.1. The patient had a CT abdomen pelvis with contrast which showed segments of asymmetric thickening of the sigmoid colon. On presentation to the ED on 05/06/2022, the patient's hemoglobin was 14.2. The patient was hypotensive in the emergency de partment, lactic acid was normal. He received 2 units of red blood cells with modest improvement in blood pressure. A CTA abdomen pelvis not show any evidence of intestinal bleeding. The patient continued to feel lightheaded when upright in the emergency department. Hospital medicine was consulted for admission. Upon further evaluation, the patient says that he has been taking NSAIDs for quite a while. Patient denies taking a proton pump inhibitor with the NSAIDs. The patient says he developed melanotic stools and abdominal pain for the first time on 05/04/2022. 05/07 EGD performed by general surgery showed multiple gastric and duodenal ulcers, no active bleeding. Patient's hemoglobin was followed until mid day and remained stable. The patient was discharged home with a prescription for oral Protonix 40 mg twice daily for 4 weeks followed by Protonix 40 mg daily. Naproxen discontinued, the patient was advised to avoid NSAIDs indefinitely. A antral biopsy was performed during the EGD to evaluate for H. pylori, results pending. The patient will follow-up with general surgery in clinic. Recommend the patient have outpatient screening colonoscopy if not recently performed. Physical exam Head: Atraumatic, normal inspection. Eyes: normal appearance, no scleral icterus. Neck: full ROM Respiratory: no respiratory distress. Cardiovascular: normal rate and rhythm, S1, S2. GI/Abdominal: soft, nontender, no guarding. Extremities: full range of motion, nontender. Neurological: CN II-XII intact, intact motor, intact sensation. Psychiatric: normal mood. Skin: warm, normal color Discharge diagnosis: Upper GI bleed secondary to gastric and duodenal ulcers Secondary discharge diagnosis: Acute anemia secondary to GI bleed Time Spent with Patient Time attestation: Total time spent providing and/or coordinating discharge services: Time spent: Less than 30 minutes EXAM Constitutional Vitals: Temp Pulse Resp BP Pulse Ox O2 Del Method O2 Flow Rate 97.6 F 77 18 137/85 96 0 05/07/22 08:01 05/07/22 06:01 05/07/22 10:01 05/07/22 10:01 05/07/22 06:01 05/07/22 10:01 05/06/22 13:01 Discharge Data Data Completed and Pending Labs on day of discharge: Labs from last 24 hours 05/07/22 05/07/22 05/07/22 12:43 05:04 05:04 WBC 5.4 RBC 3.78 L Hgb 12.0 L 11.7 L Hct 34.5 L 35.1 L MCV 92.9 MCH 31.0 MCHC 33.3 RDW 13.6 Plt Count 196 MPV 9.3 Immature Gran % (Auto) 0.7 H Neut % (Auto) 47.9 Lymph % (Auto) 37.3 [place] % (Auto) 6.8 Eos % (Auto) 6.6 Baso % (Auto) 0.7 Lymph # (Auto) 2.02 [place] # (Auto) 0.37 Eos # (Auto) 0.36 Baso # (Auto) 0.04 Immature Gran # 0.04 Absolute Neutrophils 2.59 Sodium 138 Potassium 4.3 Chloride 109 H Carbon Dioxide 22 Anion Gap 7.0 L BUN 21 H Creatinine 1.1 GFR Calculation 73 Glucose 96 Uric Acid 7.0 Calcium 8.3 L Phosphorus 3.4 Magnesium 2.1 Total Bilirubin 0.6 Direct Bilirubin < 0.2 GGT 13 AST 11 ALT 9 Alkaline Phosphatase 31 L Lactate Dehydrogenase 151 Total Protein 5.2 L Albumin 3.0 L Globulin 2.2 Albumin/Globulin Ratio 1.4 Triglycerides 115 05/06/22 05/06/22 05/06/22 22:45 14:30 14:28 WBC RBC Hgb 11.9 L 12.8 L Hct MCV MCH MCHC RDW Plt Count MPV Immature Gran % (Auto) Neut % (Auto) Lymph % (Auto) [place] % (Auto) Eos % (Auto) Baso % (Auto) Lymph # (Auto) [place] # (Auto) Eos # (Auto) Baso # (Auto) Immature Gran # Absolute Neutrophils Sodium 137 Potassium 4.4 Chloride 107 Carbon Dioxide 25 Anion Gap 5.0 L BUN 35 H Creatinine 1.2 GFR Calculation 66 Glucose 92 Uric Acid Calcium 8.3 L Phosphorus 4.2 Magnesium Total Bilirubin Direct Bilirubin GGT AST ALT Alkaline Phosphatase Lactate Dehydrogenase Total Protein Albumin 3.2 Globulin Albumin/Globulin Ratio Triglycerides 05/06/22 07:57 WBC RBC Hgb Hct MCV MCH MCHC RDW Plt Count MPV Immature Gran % (Auto) Neut % (Auto) Lymph % (Auto) [place] % (Auto) Eos % (Auto) Baso % (Auto) Lymph # (Auto) [place] # (Auto) Eos # (Auto) Baso # (Auto) Immature Gran # Absolute Neutrophils Sodium TNP Potassium TNP Chloride TNP Carbon Dioxide TNP Anion Gap TNP BUN TNP Creatinine TNP GFR Calculation TNP Glucose TNP Uric Acid Calcium TNP Phosphorus TNP Magnesium Total Bilirubin Direct Bilirubin GGT AST ALT Alkaline Phosphatase Lactate Dehydrogenase Total Protein Albumin TNP Globulin Albumin/Globulin Ratio Triglycerides Discharge Plan Patient/Caregiver Discharge Instructions Activity: increase activity as tolerated Diet: Regular Diet Instructions: Peptic Ulcer (GEN), Upper Endoscopy (GEN) Prescriptions: New pantoprazole [Protonix] 40 mg tablet,delayed release (DR/EC) 40 mg PO BID 28 Days Qty: 56 4RF Rx Instructions: Take Protonix 40 mg twice a day for 4 weeks followed by Protonix 40 mg once daily. Continued citalopram 10 mg tablet 10 mg PO QDAY Rx Instructions: Start taking 20mg after 2 weeks. Started 04/25 propranolol 40 mg Tablet 40 mg PO BID lisinopril 40 mg tablet 1 tab PO QDAY sildenafil (pulm.hypertension) 20 mg tablet 1 - 2 tab PO PRN MDD 5 tabs PRN (Reason: Erectile Dysfunction) Discontinued omeprazole 20 mg capsule,delayed release(DR/EC) 20 mg PO QDAY Qty: 30 0RF naproxen 500 mg tablet 1 tab PO BIDP PRN (Reason: Pain) Follow Up Plan Follow up with: Dominic Goel MD [Physician] - 05/21/22 9:45 am No,PCP [Primary Care Provider] - Patient Disposition: Home, Self-Care Prognosis: Fair Overall status at discharge: patient is progressing back to baseline Discharge Orders: Discharge Order (Routine); Ordered 05/07/22 Ordered By: Yury Salinas
== END 2022-05-07 15:00 | disposition home or self-care (01) | DRG 378 ==
LOC: ED 02:28 → ICU 10:30
PROVIDERS: ADMIT Internal Medicine; ATTEND Internal Medicine